=== PATIENT | female | born 1945 | race Caucasian/White ===

== ENCOUNTER 2019-02-13 14:45 | Emergency (ER) | payer MEDICARE, OTHER ==
[2019-02-13] MEDS ORDERED: Adacel (T-DAP) 0.5 ML SYRINGE ONE (16:09)
--- NOTE | 2019-02-13 16:24 | RAD ---
Left foot 3 views HISTORY: Laceration the third toe. FINDINGS: Mild joint space narrowing with prominent articular surface irregularity, subchondral scler osis, and mild osteophytosis involves the first metatarsophalangeal joint. Small overlying artifacts are present at the little and big toes on the oblique view. No acute fracture, dislocation, or aggressive osseous erosions. No soft tissue abnormalities of the t hird toe are apparent. 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 No acute abnormalities of the third toe are apparent.
[2019-02-13] MEDS ORDERED: Bacitracin 1 PK ONE (16:54)
== END 2019-02-13 17:19 | disposition home or self-care (01) ==
LOC: MADERS 14:45
DX: S91.312A Laceration without foreign body, left foot, initial encounter (principal); F41.9 Anxiety disorder, unspecified; W20.8XXA Other cause of strike by thrown, projected or falling object, initial encounter
CPT/HCPCS: 12001; 90471; 90715